=== PATIENT | male | born 1955 | race Caucasian/White ===

== ENCOUNTER 2021-07-30 07:11 | Outpatient (CLI) | payer MEDICARE, OTHER, SELFPAY ==
--- NOTE | 2021-07-30 | ECG_ITS ---
Measurements Intervals [place] Rate: 55 P: -1 ME: 158 QRS: 16 QRSD: 84 T: 15 QT: 406 QTc: 391 Interpretive Statements SINUS BRADYCARDIA EARLY PRECORDIAL R/S TRANSITION BASELINE ARTIFACT- I, II, III, AVR, AVF BORDERLINE ECG Electronically Signed On 07-30-2021 9:03:27 CDT by Tre Elder D.O.
[2021-07-30 08:21] LABS: Albumin Level 4.9 g/dL (3.5-5.1); Estimated Glomerular Filt Rate > 60
[2021-07-30 08:33] LABS: Urine Cotinine NEGATIVE
[2021-07-30 08:35] LABS: Hemoglobin A1C 5.7 % (<5.7)
== END 2021-07-30 07:12 | disposition home or self-care (01) ==
PROVIDERS: PCP Internal Medicine; Visit Provider Orthopaedic Surgery
DX: Z01.818 Encounter for other preprocedural examination (principal); M17.12 Unilateral primary osteoarthritis, left knee
CPT/HCPCS: 80307; 82040; 82565; 83036; 93005

== ENCOUNTER 2021-08-12 13:51 | Outpatient (CLI) | payer MEDICARE, OTHER, SELFPAY ==
--- NOTE | ~2021-08-12 | CT_ITS ---
EXAMINATION: CT LE LT wo con DATE: 08/12/2021 14:22 INDICATION: Left knee osteoarthritis. TECHNIQUE: High resolution computed tomography (CT) of the left lower limb from the hip through the m idfoot was performed without intravenous contrast. Additional sagittal and coronal reconstructions we re performed. Automated exposure control and iterative reconstruction technique were employed. The do se-length product was 1786.80 mGy-cm. COMPARISON: Radiographs dated 07/06/2021 FINDINGS: Bone alignment is normal. No fracture. Tricompartmental osteoarthritis at the left knee with moderate -sized marginal osteophytes as well as some eburnation along the articular cortices in the medial com partment, small marginal osteophytes in the patellofemoral and tiny marginal osteophytes in the later al compartments. 3 loose osteochondral bodies, the largest measuring 12 mm in maximal diameter at the posterior recess of the knee. No significant knee joint effusion. Mild left hip osteoarthritis with suggestion of anterior acetabular over coverage. No hip joint effusion. Additional minimal osteoarthr itis at the left ankle, moderate at the third tarsal metatarsal joint and minimal to mild at the musa ining tarsal metatarsal joints. No left ankle joint effusion. Soft tissues are the left lower limb ar e unremarkable. Small fat-containing left inguinal hernia. Diverticulosis along the visualized portio ns of the sigmoid colon without adjacent inflammatory change to suggest diverticulitis. No pathologic ally enlarged lymphadenopathy at the visualized left hemipelvis. IMPRESSION: 1. Tricompartmental osteoarthritis at the left knee with the severe joint space narrowing at the medi al compartment seen on prior radiographs underestimated on the current nonweightbearing imaging. 2. Small fat-containing left inguinal hernia. Reviewed, dictated and finalized at location B. IMPRESSION: 1. Tricompartmental osteoarthritis at the left knee with the severe joint space narrowing at the medial compartment seen on prior radiographs underestimated o n the current nonweightbearing imaging. 2. Small fat-containing left inguinal hernia.
== END 2021-08-12 13:52 | disposition home or self-care (01) ==
LOC: ANHIMG 13:57
PROVIDERS: PCP Internal Medicine; Visit Provider Orthopaedic Surgery
DX: M17.12 Unilateral primary osteoarthritis, left knee (principal); K40.90 Unilateral inguinal hernia, without obstruction or gangrene, not specified as recurrent
CPT/HCPCS: 73700

== ENCOUNTER 2021-09-16 07:52 | Outpatient (CLI) | payer MEDICARE, OTHER, SELFPAY ==
[2021-09-16 08:56] LABS: Basophils Absolute Auto 0.1 K/mm3 (0.0-0.1); Basophils Percent Auto 0.7 % (0.2-1.2); Eosinophils Absolute Auto 0.1 K/mm3 (0-0.3); Eosinophils Percent Auto 1.5 % (0-4.4); Hematocrit 41.5 % (42.0-52.0); Immature Granulocyte Absolute 0.05 K/mm3 (0.00-0.031); Immature Granulocyte Percent A 0.6 % (0-0.5); Lymphocytes Absolute Auto 2.74 K/mm3 (0.9-3.2); Lymphocytes Percent Auto 31.1 % (18.3-44.2); Mean Corpuscular HGB Conc 33.7 g/dl (32-36); Mean Corpuscular Hemoglobin 28.5 pg (26-34); Mean Corpuscular Volume 84.5 fl (80-100); Mean Platelet Volume 10.1 fl (7.4-10.4); Monocytes Absolute Auto 0.8 K/mm3 (0.1-0.6); Monocytes Percent Auto 9.3 % (2.6-8.5); Neutrophils Percent Auto 56.8 % (45.5-73.1); Platelet Count Result 216 k/mm3 (150-375); Red Blood Count 4.91 M/mm3 (4.6-6.20); Red Cell Distribution Width 12.1 % (11.5-14.5); White Blood Count 8.8 K/mm3 (4.5-10.0)
[2021-09-16 09:10] LABS: Albumin Level 4.5 g/dL (3.5-5.1); Estimated Glomerular Filt Rate > 60; Glucose 109 mg/dL (65-110)
[2021-09-16 09:21] LABS: Hemoglobin A1C 5.6 % (<5.7)
[2021-09-16 11:04] LABS: Urine Cotinine NEGATIVE
== END 2021-09-16 07:53 | disposition home or self-care (01) ==
LOC: ANHSURGERY 07:55
PROVIDERS: PCP Internal Medicine; Visit Provider Orthopaedic Surgery
DX: Z01.818 Encounter for other preprocedural examination (principal); M17.12 Unilateral primary osteoarthritis, left knee
CPT/HCPCS: 80307; 82040; 82565; 82947; 83036; 85025; 87081

== ENCOUNTER 2021-10-13 01:14 | Day surgery (SDC) | payer MEDICARE, OTHER, SELFPAY ==
--- NOTE | 2021-09-16 07:59 | PC.NURSE ---
Report to the Outpatient Waiting Room, entrance under the green pavilion located off [facility], at time _0600__ on date _10/13/21__. OR Time: _729___. - You and your visitor will be asked a series of questions to screen for COVID 19 for your protection. - A mask is required within the hospital. - Only one visitor is allowed at this time. Patient visitors will be guided where to wait when not with patient. Preoperative COVID Testing Requirements: No COVID Test needed if: (proof is required; if not received patient will have Rapid Test prior to entry) - Patient has received COVID Vaccine at least 14 days prior to procedure date or - Patient has positive COVID test result within last 90 days of surgery date. COVID Test needed if above criteria is not met If not COVID vaccinated a COVID test must be conducted within 72 hours of surgery and patient is asked to isolate self from time of testing until procedure. You will go to the [employer] [facility] for your COVID testing. The [employer] [facility] site is located at the corner of [address] [facility]. You will only be called if COVID results are positive and your surgeon may reschedule your elective surgery date. Patients may have clear liquids (water, carbonated beverages, clear teas, apple juice) until 3 hours prior to surgery (0430) with a maximum of 20 ounces. - No food from midnight until time of surgery - Infants may have breast milk until 4 hours before surgery, formula 6 hours prior to surgery. - Children will be allowed to drink immediately following surgery. If applicable, please bring a bottle or sippy cup to assist with drinking. Juice, water, soda, and popsicles are readily available. For infants on formula, please bring formula the day of surgery. Pacifiers are allowed. Take the following medications with a SIP of water the morning of surgery: __METOPROLOL, NIFEDIPINE Medications to discontinue per physician __PETTY - CONTACT DR. AUGUSTIN FOR INSTRUCTIONS Date to take last dose Please no make-up, nail singaporean, hairspray, perfume, deodorant, or body powder the day of surgery. No jewelry (including any body piercings) or valuables the day of surgery, leave them at home. Please take a shower or bath the night before, or the morning of, surgery with an antibacterial soap. Wear comfortable, loose fitting clothing. Children are encouraged to wear pajamas. - Jewelry must be removed prior to entering the operating room. Rings and piercings that are not removed may be cut off. - The hospital will not accept responsibility for valuables. - Please leave all valuables, including medications, at home the day of surgery. If you are going home after surgery, a licensed charter driver must drive you home. - NO public transportation without another adult. - We recommend that an adult stay with you for 24 hours following discharge. - We also recommend that you do not drive, make important decision, drink alcoholic beverages, or take any drugs that were not prescribed by your health care provider for at least 24 hours after your discharge time. For Pediatric surgeries, we recommend two adults accompany the child home (only one inside the building at this time). Follow any additional instructions given to you from your surgeon. TOTAL JOINT CLASS 09/23/21 @ 1000, [facility] LOWER LEVEL; USE MAIN ENTRANCE Telephone instructions given to _PT____and asked if any additional questions and then verbalized understanding. Patient advised to call surgeon office or pre surgery nurse liaison [phone] if any additional questions.
[2021-09-16 08:02] VITALS: BMI 32.8
[2021-10-13] VITALS (14 sets, daily range): BP systolic 109–135; BP diastolic 54–81; PULSE 56–78; RESP 12–18; TEMP 36.4–36.8; O2SAT 88–98
--- NOTE | ~2021-10-13 | XR_ITS ---
EXAMINATION: XR knee LT 2V DATE: 10/13/2021 10:44 INDICATION: Total left knee arthroplasty. Postop. TECHNIQUE: 2 views of left knee were obtained. COMPARISON: Left knee radiographs 07/06/2021, CT 08/12/2021 FINDINGS: There is a total left knee arthroplasty in near-anatomic alignment with patellar resurfacin g. No fracture. There is a 9 mm loose body in the posterior knee joint. There is gas in the soft tiss ues, consistent with recent surgery. IMPRESSION: 1. Total left knee arthroplasty in near-anatomic alignment. 2. 9 mm loose body in the posterior knee joint. Reviewed, dictated and finalized at location A. MAL MOLDER
--- NOTE | 2021-10-13 06:39 | P.PNAN_ITS ---
Anes - Initial Pre Proc Eval Procedure: Operation Date: 10/13/21 07:30 Proposed Procedures p Custom Left Total Knee Arthroplasty - Troy Riggins MD Date/Time: 10/13/21 06:39 Surgeon: Troy Riggins MD Pre Op Diagnosis: primary OA left knee Patient Data Age: 66 Gender: M Height: 1.78 m Weight: 103.6 kg Allergies Allergy/AdvReac Type Severity Reaction Status Date / Time No Known Allergies Allergy Verified 10/13/21 06:43 Home Medications Medication Instructions Recorded Confirmed Type atorvastatin 20 mg tablet 20 mg PO HS 07/06/21 10/13/21 History losartan 25 mg tablet 25 mg PO HS 07/06/21 10/13/21 History nifedipine 60 mg tablet,extended 60 mg PO QAM 07/06/21 10/13/21 History release rivaroxaban 20 mg tablet 20 mg PO QAM 07/06/21 09/16/21 History zolpidem 10 mg tablet 5 mg PO HS PRN 07/06/21 10/13/21 History metoprolol succinate 25 mg PO QAM 09/16/21 10/13/21 History Patient hx anesthesia problems: none Family hx anesthesia problems: none Results Review: All pre-operative results and documents have been reviewed as part of the pre-operative evaluation. [facility] Past Medical History Medical History (Updated 10/12/21 @ 14:37 by Oswaldo Lilly DO) Hyperlipidemia Hypertension MARSHAL (obstructive sleep apnea) Renal vein thrombosis (~2007) 2008 - on xarelto Surgical History Surgical History History of arthroscopy of both knees Social History Social History Smoking status: Never smoker Second hand tobacco smoke exposure: No Additional smoking assessment comments: PT DENIES ALL FORMS OF TOBACCO USE Alcohol intake: current Drinks per week: 3 Alcohol use details: socially Substance use: never Substance use type: does not use Living arrangements: with family Spiritual care concerns: No Anes - Eval Final PreProcedure Day of Procedure 10/13/21 06:39 Patient weight: obese Heart: regular rate and rhythm Lungs: clear to auscultation and normal air movement Airway: Mallampati scale class II Neurological: alert and oriented Last oral intake: >/= 8 hours ASA classification: III Emergent: no Anesthetic plan: proceed Anesthesia type and monitoring: general LMA and standard monitoring Results Review: All pre-operative results and documents have been reviewed as part of the pre-operative evaluation. Informed Consent: The patient's anesthetic plan and its attendant risks and benefits were discussed with the patient/family/POA. Questions were solicited and answers provided to the satisfaction of the patient/family/POA.
--- NOTE | 2021-10-13 06:39 | WPDANESPNB ---
Anes - Peripheral Nerve Block Date/Time: 10/13/21 06:39 I have discussed with the patient/family/POA the placement of a peripheral nerve block for post-operative pain management, including associated risks, benefits, complications, and side effects. Alternative methods of post-operative analgesia were detailed. Questions were solicited and answers provided to the satisfaction of the patient/family/POA. Time-Out: A pre-procedural Time-Out was completed immediately before starting the procedure and confirmed: Patient Identification, Site, Procedure, Patient Position and the Availability of Requisite Equipment. Clinical Indications: Acute post-operative pain management requested by the operative surgeon. Nerve Block Insertion Note Anes-nerve block: adductor canal left Patient position: supine Skin prep: chlorhexidine Needle: 22 gauge, stimulating, insulated echogenic needle. Needle length: 80 mm Technique: ultrasound Injectate: bupivacaine 0.5% with epi 5 mcg/ml (30cc - no epi) Observations: tolerated well Complications: none Procedure start time:: 722 Procedure end time:: 726
[2021-10-13] MEDS: ACETAMINOPHEN 500 MG TABLET 1000 MG PO (06:47)
[2021-10-13] MEDS: TRANEXAMIC ACID 1,000MG/ISO100 1,000 MG/100 ML BAG 200 MG IVPB (06:59)
[2021-10-13] MEDS: LACTATED RINGERS 1,000 ML 30 ML IV CONT ×2 (06:59→10:33)
--- NOTE | 2021-10-13 07:07 | WPDHPUPDATE1 ---
History and Physical Update Update Date/Time: 10/13/21 07:07 History and Physical has been reviewed, including an updated exam of the patient. There are NO changes in the patient's condition. Risks, benefits, and alternatives have been discussed and questions answered. Patient agrees to proceed with procedure.
[2021-10-13] MEDS: ceFAZolin 2 GM/D5W 50 ML 2 GM/50 ML BAG IVPB (07:29)
[2021-10-13] MEDS: GENTAMICIN BONE CEMENT REFOBACIN 1 EACH TOPICAL (08:11)
[2021-10-13] MEDS: fentaNYL CITRATE INJ (*CRX) 100 MCG/2 ML VIAL 25 MCG IV PUSH ×2 (11:17→11:25)
[2021-10-13] MEDS: oxyCODONE HCL (*CRX) 5 MG TAB IR PO (13:44)
--- NOTE | 2021-10-13 17:17 | P.OP_ITS ---
Procedure Note - Detailed Date of Procedure 10/13/21 Pre-op Diagnosis primary OA left knee Post-op Diagnosis same Procedure Performed Total knee arthroplasty, left. Surgeon Troy Riggins MD Analytics Senior Manager Jess Lim PA-C Anesthesia general and regional (Subsartorial block.) Description of Procedure Physician product safety technical assistant, Jess Lim PA-C, required for surgery; including patient positioning, draping, tissue retraction, maintaining instrument position, cement removal, wound closure, and dressing placement. Preoperative antibiotics were given. The limb was prepped and draped in the usual sterile fashion with a well-padded tourniquet high on the thigh. The limb was exsanguinated and the tourniquet inflated to 300 mmHg. A longitudinal incision was created just medial to the patella. A trivector approach to the knee was performed. Arthrotomy was taken down through the joint capsule. No significant releases were initially taken. The femur was exposed and the F1 jig was applied. The coring tool was used to remove the cartilage for the F2 jig to sit flush with the bone. The jig was pinned and the distal cut carefully taken. Caliper measurements confirmed appropriate bony resections according to the preoperative templated plan. The F4 cutting jig for the femur was applied, at the standard rotation. The AP and anterior chamfer cuts were taken. The F5 jig was applied and the posterior chamfer cuts were taken. The tibia was prepared using the T1 jig, after removing cartilage for the jig contact points. Proper alignment was checked with the alignment mauro. The tibia was cut using the T1u guide. Gap balancing was performed. Gap measurements were taken and the knee was trialed. Excellent alignment and soft tissue balancing was confirmed. The posterior cruciate ligament was recessed along the proximal tibia. The patella was cut for resurfacing. Three lug holes were drilled. Meniscal remnants were removed. The trial components were assembled. Excellent range of motion and proper soft tissue balancing were confirmed throughout the full range of motion. Patellar tracking was excellent. The knee was copiously irrigated periodically throughout the procedure. The real implants were cemented into position. Excess cement was carefully removed. The wound was closed in layers with interrupted #1 Vicryl suture, 2-0 strata fix suture, 0 strata fix suture, 2-0 strata fix suture. Steri-Strips placed on the skin with the knee flexed. Sterile bulky dressing applied. The patient was brought to the recovery room in stable condition. There were no complications. Implants [employer] Custom total knee arthroplasty. Cemented. Cruciate retaining. 6A insert. 35 mm round patella. Estimated Blood Loss -100.0 Drains No Complications No immediate complications Condition stable Disposition PACU
== END 2021-10-13 13:50 | disposition home or self-care (01) ==
PROVIDERS: PCP Internal Medicine; Visit Provider Orthopaedic Surgery
PROC: (CPT 27447; principal; 2021-10-13 07:30)
DX: M17.12 Unilateral primary osteoarthritis, left knee (principal); G89.18 Other acute postprocedural pain; E78.5 Hyperlipidemia, unspecified; I10 Essential (primary) hypertension; G47.33 Obstructive sleep apnea (adult) (pediatric); Z86.718 Personal history of other venous thrombosis and embolism; Z79.01 Long term (current) use of anticoagulants; E66.9 Obesity, unspecified; Z68.32 Body mass index [BMI] 32.0-32.9, adult
CPT/HCPCS: 27447; 64447; 36415; 73560; 86850; 86900; 86901; 97110; 97161; A9270; C1713; C1776; J0171; J0690; J1100; J1170; J1885; J2250; J2270; J2370; J2405; J2704; J2795; J3010; J7120

== ENCOUNTER 2021-12-31 00:20 | Day surgery (SDC) | payer MEDICARE, OTHER, SELFPAY ==
--- NOTE | 2021-12-24 13:38 | PC.NURSE ---
Report to the Outpatient Waiting Room, entrance under the green pavilion located off [facility], at time __0900 on date __12/31/21 . OR Time: ____1099____. - You and your visitor will be asked a series of questions to screen for COVID 19 for your protection. - A mask is required within the hospital. Preoperative COVID Testing Requirements: No COVID Test needed if: (proof is required; if not received patient will have Rapid Test prior to entry) - Patient has received COVID Vaccine at least 14 days prior to procedure date or - Patient has positive COVID test result within last 90 days of surgery date. COVID Test needed if above criteria is not met If not COVID vaccinated a COVID test must be conducted within 72 hours of surgery and patient is asked to isolate self from time of testing until procedure. You will go to the [employer] for your COVID testing. The [employer] [facility] site is located at the corner of [address] [facility]. You will only be called if COVID results are positive and your surgeon may reschedule your elective surgery date. Patients may have clear liquids (water, carbonated beverages, clear teas, apple juice) until 3 hours prior to surgery with a maximum of 20 ounces. - No food from midnight until time of surgery - Infants may have breast milk until 4 hours before surgery, infant formula 6 hours prior to surgery. - Children will be allowed to drink immediately following surgery. If applicable, please bring a bottle or sippy cup to assist with drinking. Juice, water, soda, and popsicles are readily available. For infants on formula, please bring formula the day of surgery. Pacifiers are allowed. Take the following medications with a SIP of water the morning of surgery: ___METOPROLOL,NIFEDIPINE Medications to discontinue per physician ____XARELTO PER DR AUGUSTIN Date to take last dose Please no make-up, nail turkish, hairspray, perfume, deodorant, or body powder the day of surgery. No jewelry (including any body piercings) or valuables the day of surgery, leave them at home. Please take a shower or bath the night before, or the morning of, surgery with an antibacterial soap. Wear comfortable, loose fitting clothing. Children are encouraged to wear pajamas. - Jewelry must be removed prior to entering the operating room. Rings and piercings that are not removed may be cut off. - The hospital will not accept responsibility for valuables. - Please leave all valuables, including medications, at home the day of surgery. If you are going home after surgery, a licensed milk wagon driver must drive you home. - NO public transportation without another adult. - We recommend that an adult stay with you for 24 hours following discharge. - We also recommend that you do not drive, make important decision, drink alcoholic beverages, or take any drugs that were not prescribed by your health care provider for at least 24 hours after your discharge time. For Pediatric surgeries, we recommend two adults accompany the child home (only one inside the building at this time). One visitor will be allowed to accompany the patient into the hospital. Patients visitor will be instructed to remain with patient at all times or leave the building. We will allow the visitor to come back to the postoperative area when patient is ready. Follow any additional instructions given to you from your surgeon. Telephone instructions given to __PATIENT and asked if any additional questions and then verbalized understanding. Patient advised to call surgeon office or pre surgery nurse liaison [phone] if any additional questions.
[2021-12-24 13:39] VITALS: BMI 31.0
[2021-12-31] VITALS (8 sets, daily range): BP systolic 106–151; BP diastolic 68–88; PULSE 58–68; RESP 12–22; TEMP 36.5–36.6; O2SAT 94–98
--- NOTE | 2021-12-31 07:20 | WPDHPUPDATE1 ---
History and Physical Update Update Date/Time: 12/31/21 07:20 History and Physical has been reviewed, including an updated exam of the patient. There are NO changes in the patient's condition. Risks, benefits, and alternatives have been discussed and questions answered. Patient agrees to proceed with procedure.
--- NOTE | 2021-12-31 09:26 | P.PNAN_ITS ---
Anes - Initial Pre Proc Eval Procedure: Operation Date: 12/31/21 11:00 Proposed Procedures p Joint Manipulation Left Knee - Troy Riggins MD Date/Time: 12/31/21 09:26 Surgeon: Troy Riggins MD Pre Op Diagnosis: s/p left total knee replacement Patient Data Age: 66 Gender: M Height: 1.75 m Weight: 99.2 kg Allergies Allergy/AdvReac Type Severity Reaction Status Date / Time No Known Allergies Allergy Verified 12/31/21 09:12 Home Medications Medication Instructions Recorded Confirmed Type atorvastatin 20 mg tablet 20 mg PO HS 07/06/21 12/31/21 History losartan 25 mg tablet 25 mg PO HS 07/06/21 12/31/21 History nifedipine 60 mg tablet,extended 60 mg PO QAM 07/06/21 12/31/21 History release rivaroxaban 20 mg tablet 20 mg PO QAM 07/06/21 12/31/21 History zolpidem 10 mg tablet 5 mg PO HS PRN 07/06/21 12/31/21 History metoprolol succinate 25 mg PO QAM 09/16/21 12/31/21 History Patient hx anesthesia problems: none Family hx anesthesia problems: none Results Review: All pre-operative results and documents have been reviewed as part of the pre-operative evaluation. [facility] Past Medical History Medical History Hyperlipidemia Hypertension MARSHAL (obstructive sleep apnea) Renal vein thrombosis (~2007) 2008 - on xarelto Surgical History Surgical History History of arthroscopy of both knees Status post total left knee replacement (~10/13/21) Social History Social History Second hand tobacco smoke exposure: No Additional smoking assessment comments: PT DENIES ALL FORMS OF TOBACCO USE Alcohol intake: current Drinks per week: 3 Alcohol use details: socially Substance use: never Substance use type: does not use Living arrangements: with family Spiritual care concerns: No Anes - Eval Final PreProcedure Day of Procedure 12/31/21 09:26 Patient weight: obese Heart: regular rate and rhythm Lungs: clear to auscultation Airway: Mallampati scale class II Neurological: alert and oriented Last oral intake: >/= 8 hours ASA classification: III Emergent: no Anesthetic plan: proceed Anesthesia type and monitoring: general LMA and standard monitoring Results Review: All pre-operative results and documents have been reviewed as part of the pre-operative evaluation. Informed Consent: The patient's anesthetic plan and its attendant risks and benefits were discussed with the patient/family/POA. Questions were solicited and answers provided to the satisfaction of the patient/family/POA.
[2021-12-31] MEDS: ACETAMINOPHEN 500 MG TABLET 1000 MG PO (09:32)
[2021-12-31] MEDS: LACTATED RINGERS 1,000 ML 30 ML IV CONT (09:40)
[2021-12-31] MEDS: KETOROLAC 15 MG/ML VIAL (*BKC) IV PUSH (09:44)
--- NOTE | 2021-12-31 10:28 | P.OP_ITS ---
Procedure Note - Detailed Date of Procedure 12/31/21 Pre-op Diagnosis Contracture left knee s/p left total knee replacement Post-op Diagnosis same Procedure Performed Manipulation under anesthesia of left knee, status post total knee arthroplasty. Surgeon Troy Riggins MD Equipment Service Technician Jess Lim PA-C Anesthesia general Indications Early postoperative contracture. Patient unable to bend the knee past 100?. Description of Procedure General anesthetic administered. Patient gently relaxed. Knee examined under anesthesia. Range of motion 3? to 100?. Gentle flexion caused release of multiple small scar tissue fibers. Release could be felt easily without undue stress. Gentle flexion stress maintained for several minutes. Flexion brought to 125? without undue force. No medial or lateral instability. No other abnorm al findings. Estimated Blood Loss 0 Tourniquet Time 0 Complications No immediate complications Condition stable Disposition same day
== END 2021-12-31 12:51 | disposition home or self-care (01) ==
PROVIDERS: PCP Internal Medicine; Visit Provider Orthopaedic Surgery
PROC: (CPT 27570; principal; 2021-12-31 11:00)
DX: M24.562 Contracture, left knee (principal); Z96.652 Presence of left artificial knee joint; I10 Essential (primary) hypertension; E78.5 Hyperlipidemia, unspecified; G47.33 Obstructive sleep apnea (adult) (pediatric); Z79.01 Long term (current) use of anticoagulants; E66.9 Obesity, unspecified; Z68.32 Body mass index [BMI] 32.0-32.9, adult
CPT/HCPCS: 27570; A9270; J0330; J1885; J2704; J7120

== ENCOUNTER 2025-01-17 08:20 | Outpatient (CLI) | payer MEDICARE, SELFPAY ==
--- NOTE | 2025-01-18 11:19 | WPDPFTINT ---
PFT Procedure Performed PFT Procedure Performed Plethysmography (Lung Vol) Diffusing Cap (DLCO) Flow Vol Loop Spirometry w/o Bronchodil PFT Interpretation Lung volumes were measured with the body plethysmography method. Lung volumes are unremarkable. Spirometry showed normal expiratory flow rates and a normal FEV1 to FVC ratio 72%. No post bronchodilator study was conducted. Lung diffusion capacity is normal at 88% predicted. The flow-volume loop is unremarkable. Impression: Spirometry, lung volumes, and lung diffusion capacity all within the normal range.
== END 2025-01-17 08:21 | disposition home or self-care (01) ==
PROVIDERS: PCP Internal Medicine; Visit Provider Internal Medicine Cardiovascular Disease
DX: R06.09 Other forms of dyspnea (principal)
CPT/HCPCS: 94375; 94726; 94729